=== PATIENT | male | born 1940 | race Caucasian/White ===

== ENCOUNTER 2025-03-26 15:22 | Outpatient (REF) | payer MEDICARE, BC, SELFPAY ==
--- NOTE | 2025-03-26 10:20 | NASALBX_PTH ---
PATIENT: Franco Cruz LOC: [facility] U#:[id number] AGE/SX: 84/M ROOM: RE03/26/[address]: Armand Pompa MD : 1940 BED: DIS: 03/26/2025 SPEC #: [id number] RECD: 03/26/25 17:31 STATUS: SHERRY RERex #: [id number] SHADI: 03/26/25 10:[address]: Armand Pompa DEPT: Surgical Specimen RECD BY: Shana Porter ENTERED: 03/26/25 17:32 SP TYPE: NASALBX OTHR DR: Dania Simmons Tissues: 1 - MUCOSA, NOS Procedures: GROSS AND MICRO LEVEL 4 SPECIAL STAIN 1 Comments: [id number]
== END 2025-03-26 15:23 | disposition home or self-care (01) ==
LOC: LBN 15:22
PROVIDERS: PCP Family Medicine; Visit Provider Otolaryngology
DX: J34.89 Other specified disorders of nose and nasal sinuses (principal)
CPT/HCPCS: 88305; 88312